=== PATIENT | male | born 1965 | race Caucasian/White ===

== ENCOUNTER → 2019-07-18 13:21 | Outpatient (CLI) | payer BC, SELFPAY ==
--- NOTE | ~2019-07-18 | CT_ITS ---
EXAMINATION: CT abdomen pelvis wo/w con EXAM DATE: 07/18/2019 14:07 INDICATION: Gross hematuria. TECHNIQUE: Spiral CT of the abdomen and pelvis was performed without contrast. The patient was then injected with small bolus intravenous Omnipaque 350, followed by delay of approximately 10 minutes to allow collecting system to opacify. A post contrast scan abdomen and pelvis was performed during inj ection of remaining contrast. A total of 130 cc intravenous contrast was administered. The dose-chip th product (DLP) for this examination was 2629.65 mGy-cm. The exposure was tailored according to pat ient size (auto mA exposure control), and iterative reconstruction (ASIR) was used as additional dose reduction technique. There is no prior study for comparison. FINDINGS: There is no hydronephrosis or nephrolithiasis. The kidneys enhance symmetrically. There ar e no suspicious renal lesions. The calyces and opacified portions of ureters are unremarkable, witho ut filling defects or focal suspicious strictures. The bladder is unremarkable. The prostate is unr emarkable. The liver, spleen, adrenal glands and pancreas are unremarkable. Gallbladder is unremarkable. No bi liary obstruction. There is no retroperitoneal or pelvic lymphadenopathy. The appendix is normal. The stomach and small bowel are unremarkable. There is mild to moderate colo lawson diverticulosis. There is no adjacent inflammatory change to suggest diverticulitis. No free int raperitoneal gas. The heart is normal in size. There are no pericardial or pleural effusions. The lung bases are unremarkable. There are no osteoblastic or osteolytic lesions identified. IMPRESSION: 1. No suspicious genitourinary findings. 2. Colonic diverticulosis. Reviewed, dictated and finalized at location A. MECHANIC
--- NOTE | ~2019-07-18 | XR_ITS ---
XR abdomen/kub 1V 07/18/2019 14:07 INDICATION: Gross hematuria TECHNIQUE: KUB COMPARISON: None FINDINGS: Bowel gas pattern is normal. There is no evidence of free air, mass, organomegaly, ascites or obstruction. No abnormal calculi are seen. Calcifications in the pelvis are believed to be phleb oliths. The bones appear intact. IMPRESSION: 1: No acute abdominal abnormality identified. Reviewed, dictated and finalized at location A. TUB WORKER
[2019-07-18 13:42] LABS: Blood Urea Nitrogen 19 mg/dL (8-26); Estimated Glomerular Filt Rate > 60
== END ==
PROVIDERS: Visit Provider Urology
DX: R31.0 Gross hematuria (principal); K57.30 Diverticulosis of large intestine without perforation or abscess without bleeding
CPT/HCPCS: 74018; 74178; Q9967

== ENCOUNTER → 2022-04-19 10:09 | Outpatient (CLI) | payer BC, SELFPAY ==
--- NOTE | ~2022-04-19 | MR_ITS ---
EXAMINATION: MR knee RT wo con DATE: 04/19/2022 10:45 INDICATION: Right knee pain TECHNIQUE: Magnetic resonance imaging (MRI) of the right knee was performed without intravenous contr ast. Sequences included coronal PD-weighted FSE, coronal PD-weighted FS FSE, sagittal T2-weighted FS E, sagittal PD-weighted FS FSE and axial PD weighted fat saturated FSE. COMPARISON: None. FINDINGS: Medial compartment: Medial meniscal tear with longitudinal horizontal tear plane extending to the inferior articular surf josefina of the body and posterior horn and small radial tear along the inner third of the lateral side of the posterior horn near the posterior root. Deep chondral ulceration along the medial rim of the med ial tibial plateau with mild underlying subarticular cystlike and edema-like changes. Partial-thickne ss cartilage loss with chondral surface regularity along the anterior weightbearing medial femoral co ndyle. Lateral compartment: Small longitudinal horizontal tear extending to the inferior articular surface near the free edge of the body of the lateral meniscus. Deep chondral fissuring at the central to posterior aspect of the l ateral tibial plateau without degenerative subchondral changes. Articular cartilage is normal along t he weightbearing lateral femoral condyle. Patellofemoral compartment: Deep chondral fissuring without degenerative subchondral changes extending across the lateral patella r facet. Additional small region of partial-thickness chondral fissuring at the central aspect of the medial patellar facet. Deep chondral ulceration and fissuring at the central aspect of the trochlear groove and immediately adjacent medial and lateral trochlea. Ligaments and tendons: Anterior and posterior cruciate ligaments are normal. The medial collateral ligament and fibular milind ateral ligament complex are normal. Moderate tendinopathy without tear at the distal quadriceps tendo n with small enthesophytes at its patellar insertion. Mild tendinopathy at the proximal patellar tend on. The visualized medial and lateral hamstring tendons as well as the iliotibial band are normal. Fluid: Physiologic amount of fluid in the joint space. No loose osteochondral bodies identified. Minimal pre patellar edema without discrete bursal fluid collection. Tiny Chavez's cyst. Additional small multilob ulated ganglion cyst extending cephalad along the deep margin of the semimembranosus. Osseous/other: Likely reactive mild marrow edema underlying the patellar insertion of the quadriceps tendon. No frac ture or pathologic marrow replacing process. IMPRESSION: 1. Medial and lateral meniscal tears. 2. Mild tricompartmental osteoarthritis with regions of moderate grade chondral malacia in all 3 comp artments and small regions of high-grade chondral malacia along the medial rim of the medial tibial p lateau. 3. Moderate distal quadriceps and mild proximal patellar tendinopathy without tear. Reviewed, dictated and finalized at location A. STRIAL RELATIONS OFFICER IMPRESSION: 1. Medial and lateral meniscal tears. 2. Mild tricompartmental osteoarthritis with regions of moderate grade chondral malacia in all 3 compartments and small regions of high-grade chondral malacia along the medial rim of the medial tibial plateau. 3. Moderate distal quadriceps and mild proximal patellar tendinopathy without t ear.
== END ==
DX: M17.11 Unilateral primary osteoarthritis, right knee (principal); S83.281A Other tear of lateral meniscus, current injury, right knee, initial encounter; S83.241A Other tear of medial meniscus, current injury, right knee, initial encounter; X58.XXXA Exposure to other specified factors, initial encounter
CPT/HCPCS: 73721

== ENCOUNTER 2023-04-26 03:01 | Day surgery (SDC) | payer BC, SELFPAY ==
[2023-04-07 16:09] VITALS: BMI 33.2
--- NOTE | 2023-04-25 09:06 | SUR.PREOP ---
Patient called regarding upcoming procedure. Reviewed preop instructions, appointment times, and procedure prep.
[2023-04-26 08:20] VITALS: BP 130/82; PULSE 67; RESP 16; TEMP 36.1; O2SAT 97; BMI 33.3
[2023-04-26] MEDS: LACTATED RINGERS 1,000 ML 150 ML IV CONT (08:27)
--- NOTE | 2023-04-26 08:54 | PM.HPGS ---
History of Present Illness History of Present Illness Consent: Risks, benefits, and alternatives have been discussed and questions answered. Patient agrees to proceed with procedure. Chief complaint: Neoplasm Screening Narrative: Wilman Luis is a 57 year old male Presents for screening colonoscopy. Patient's current weight appetite and bowel movements are normal. Patient denies abdominal pain. He has had no bleeding. Family history noncontributory. Patient does report 2 episodes of diverticulitis earlier this year. Currently is pain-free with bowel habits that have returned to normal. Review of Systems Review of Systems: Review of systems is noncontributory. [facility] Social History Social History Smoking status: Never smoker Alcohol intake: current Drinks per week: 6 Substance use type: does not use Living arrangements: other Additional living arrangements comments: with sp Meds Home Medications and Allergies Home Medications Medication Instructions Recorded Confirmed Type aspirin 81 mg tablet 81 mg PO DAILY 04/07/23 04/26/23 History cholecalciferol (vitamin D3) 50 50 mcg PO DAILY 04/07/23 04/26/23 History mcg (2,000 unit) tablet losartan 25 mg tablet 25 mg PO DAILY 04/07/23 04/26/23 History rosuvastatin 20 mg tablet 20 mg PO DAILY 04/07/23 04/26/23 History Allergies Allergy/AdvReac Type Severity Reaction Status Date / Time Sulfa (Sulfonamide AdvReac Diarrhea Verified 04/26/23 08:19 Antibiotics) Vital Signs Vital Signs - 24 hr 04/26/23 08:20 Temperature 97 F L Pulse Rate 67 Respiratory Rate 16 Blood Pressure 130/82 Pulse Oximetry 97 Oxygen Delivery Room Air Exam Narrative: Physical exam reveals patient to be alert. Vital signs stable. HEENT exam is unremarkable. Patient is anicteric. Lungs are clear to auscultation and percussion. Heart is without murmur or extra sounds. Abdomen bowel sounds are present soft nontender with no organomegaly. Digital external rectal exam is normal. Assessment and Plan Assessment and plan (1) Encounter for screening colonoscopy: Code(s): Z12.11 - Encounter for screening for malignant neoplasm of colon Status: Acute Assessment and Plan: Patient presents for screening colonoscopy. He appears to be at average risk for colon polyps. Because he is known to have diverticular disease high-fiber diet is advised.
--- NOTE | 2023-04-26 09:22 | P.PNAN_ITS ---
Anes - Initial Pre Proc Eval Procedure: Operation Date: 04/26/23 09:30 Proposed Procedures p Screening Colonoscopy - Kartik Fernandes MD Date/Time: 04/26/23 09:22 Surgeon: Kartik Fernandes MD Pre Op Diagnosis: Neoplasm Screening Patient Data Age: 57 Gender: M Height: 1.91 m Weight: 121.1 kg Last Vital Signs Temp 97 F L 04/26/23 08:20 Pulse 67 04/26/23 08:20 Resp 16 04/26/23 08:20 BP 130/82 04/26/23 08:20 Pulse Ox 97 04/26/23 08:20 O2 Del Method Room Air 04/26/23 08:20 Allergies Allergy/AdvReac Type Severity Reaction Status Date / Time Sulfa (Sulfonamide AdvReac Diarrhea Verified 04/26/23 08:19 Antibiotics) Home Medications Medication Instructions Recorded Confirmed Type aspirin 81 mg tablet 81 mg PO DAILY 04/07/23 04/26/23 History cholecalciferol (vitamin D3) 50 50 mcg PO DAILY 04/07/23 04/26/23 History mcg (2,000 unit) tablet losartan 25 mg tablet 25 mg PO DAILY 04/07/23 04/26/23 History rosuvastatin 20 mg tablet 20 mg PO DAILY 04/07/23 04/26/23 History Patient hx anesthesia problems: none Family hx anesthesia problems: none Results Review: All pre-operative results and documents have been reviewed as part of the pre- operative evaluation. [facility] Social History Social History Smoking status: Never smoker Alcohol intake: current Drinks per week: 6 Substance use type: does not use Living arrangements: other Additional living arrangements comments: with sp Anes - Eval Final PreProcedure Day of Procedure 04/26/23 09:22 Patient weight: obese Heart: regular rate and rhythm Lungs: clear to auscultation Airway: Mallampati scale class II Neurological: alert and oriented Last oral intake: >/= 8 hours ASA classification: III Emergent: no Anesthetic plan: proceed Anesthesia type and monitoring: general GIVS and standard monitoring Results Review: All pre-operative results and documents have been reviewed as part of the pre- operative evaluation. Informed Consent: The patient's anesthetic plan and its attendant risks and benefits were discussed with the patient/family/POA. Questions were solicited and answers provided to the satisfaction of the patient/family/POA.
[2023-04-26 09:51] VITALS: BP 102/54; PULSE 70; RESP 14; O2SAT 95
[2023-04-26 10:01] VITALS: BP 108/62; PULSE 68; RESP 17; O2SAT 97
[2023-04-26 10:11] VITALS: BP 136/61; PULSE 62; RESP 20; O2SAT 97
== END 2023-04-26 10:22 | disposition home or self-care (01) ==
PROVIDERS: Visit Provider Internal Medicine Gastroenterology
PROC: 0DJD8ZZ Inspection of Lower Intestinal Tract, Via Natural or Artificial Opening Endoscopic (ICD-10-PCS; CPT 45378; principal; 2023-04-26 09:30)
DX: Z12.11 Encounter for screening for malignant neoplasm of colon (principal); D12.3 Benign neoplasm of transverse colon; K64.8 Other hemorrhoids; K57.30 Diverticulosis of large intestine without perforation or abscess without bleeding
CPT/HCPCS: 45385; 88305; J2704; J7120